=== PATIENT | female | born 2000 | race Caucasian/White ===

== ENCOUNTER 2019-05-12 12:10 | Emergency (ER) | payer OTHER ==
[2019-05-12 13:09] VITALS: BP 140/93
--- NOTE | 2019-05-12 14:47 | UC ---
Ear Complaint HPI - HPI Summary HPI Summary: Started with sore throat and congestion with slight cough starting yesterday. Left ear pain starting this morning. No fevers/ sweats or chills. - History of Current Complaint Chief Complaint: UCEar Stated Complaint: LEFT EAR PAIN Time Seen by Provider: 05/12/19 14:37 Hx Obtained From: Patient Hx Last Menstrual Period: 04/29/19 ?: No Onset/Duration: Sudden Onset, Lasting Days - 2, Worse Since - today Severity Initially: Mild Severity Currently: Moderate Pain Intensity: 7 Aggravating Factors: Nothing Alleviating Factors: Nothing Associated Signs/Symptoms: Positive: Hearing Loss, URI Symptoms Related History: Seasonal Allergies - Allergies/Home Medications Allergies/Adverse Reactions: Allergies Allergy/AdvReac Type Severity Reaction Status Date / Time DOGS AND CATS, SEASONAL Allergy Unknown Unknown Uncoded 05/12/19 13:00 ALLERGIES Reaction Details Home Medications: Home Medications Norgestrel-Ethinyl Estradiol [Aiu-[id number] Tablet] 1 tab PO DAILY 05/12/19 [ History Confirmed 05/12/19] PMH/Surg Hx/FS Hx/Imm Hx Previously Healthy: Yes - Surgical History Surgical History: None - Family History Known Family History: Negative: Cardiac Disease - Social History Occupation: Student Lives: Dormitory/Roommates Alcohol Use: None Substance Use Type: None Smoking Status (MU): Never Smoked Tobacco Review of Systems All Other Systems Reviewed And Are Negative: Yes Constitutional: Positive: Fatigue ENT: Positive: Sore Throat, Ear Ache, Nasal Discharge Respiratory: Positive: Cough Physical Exam Triage Information Reviewed: Yes Appearance: No Pain Distress, Ill-Appearing - mild, Thin Vital Signs: Initial Vital Signs Temp 98.4 F 05/12/19 13:02 Pulse 73 05/12/19 13:02 Resp 16 05/12/19 13:02 BP 140/93 05/12/19 13:02 Pulse Ox 100 05/12/19 13:02 Vital Signs Reviewed: Yes Eyes: Positive: Conjunctiva Clear ENT: Positive: Pharynx normal, Nasal congestion - with allergic changes., TMs normal - AD, TM bulging - with serous fluid, TM red - Neck exam: Normal Respiratory: Positive: Lungs clear, Wheezing - expiratory wheeze with coughing Cardiovascular Exam: Normal Musculoskeletal Exam: Normal Neurological Exam: Normal Psychological Exam: Normal Skin Exam: Normal Ear Complaint Course/Dx - Differential Dx/Diagnosis Differential Diagnosis/HQI/PQRI: Barotrauma, Otitis Externa, Otitis Media, URI Provider Diagnosis: Upper respiratory infection with cough and congestion, Right acute serous otitis media, Bronchospasm, acute Discharge ED - Sign-Out/Discharge Documenting (check all that apply): Patient Departure All imaging exams completed and their final reports reviewed: No Studies - Discharge Plan Condition: Stable Disposition: HOME Prescriptions: Amoxicillin 875 mg PO BID #20 tablet predniSONE TAB* [Deltasone 20 MG TAB*] 60 mg PO DAILY #18 tab Patient Education Materials: Upper Respiratory Infection (ED), Serous Otitis Media (ED) Referrals: No Primary Care Phys,NOPCP [Primary Care Provider] - Additional Instructions: NASAL SPRAYS AND DROPS: Afrin in the PUMP/ MIST bottle (Get generic 12 hours nasal decongestant spray). Tilt your head down and look at the floor while doing the spray, Nose to Toes". Decongestant nasal sprays and drops often give dramatic relief from congestion. They are often recommended for patients with sinus infection to assist with sinus drainage. Persons with high blood pressure should consult the doctor before using these nasal sprays. Afrin and Jack-Synephrine are common rhjh-[id number]-[id number] preparations. They should not be used for more than five days, as "rebound" congestion can occur - - the congestion flares as the drug wears off. A way of dealing with this rebound congestion problem is to medicate only one nostril each time, allowing the other nostril to recover from the medicine' s effects. When you no longer need the drug during the day, spray only one nostril each night. This helps you sleep well without severe rebound congestion. Call the doctor if you develop severe headache, palpitations, or chest pain. "NEILMED SINUS RINSE: CHECK OUT AT [facility] Saline nasal wash helps with mucous, allergies and congestion. It can be used up to twice a day or only as needed. Use lukewarm tap water. It does not have to be sterilized or distilled water. Do 1/3 on each side and snort out of both nostrils. Repeat the process with 1/6 of the bottle on each side with snorting in between to finish the solution in the bottle ONLY START THE AMOXICILLIN IF THE EAR PAIN IS WORSE AND YOU ARE GETTING FEVERS/ SWEATS OR CHILLS. - Billing Disposition and Condition Condition: STABLE Disposition: Home
== END 2019-05-12 15:08 | disposition home or self-care (01) ==
LOC: UCCORT 12:10
DX: J06.9 Acute upper respiratory infection, unspecified (principal); R05 Cough; R09.81 Nasal congestion; H65.01 Acute serous otitis media, right ear; J98.01 Acute bronchospasm; R53.83 Other fatigue; Z91.09 Other allergy status, other than to drugs and biological substances
CPT/HCPCS: 99202; G0463